=== PATIENT | male | born 1965 | race Caucasian/White ===

== ENCOUNTER 2016-09-28 08:35 | Day surgery (SDC) | payer OTHER ==
[2016-09-28] MEDS ORDERED: LACTATED RINGERS 1,000 ML IV ONE (08:55)
[2016-09-28] MEDS ORDERED: fentaNYL 100 MCG/2 ML VIAL IVP ONE (09:30)
[2016-09-28] MEDS ORDERED: MIDAZOLAM 2 MG/2 ML VIAL IVP ONE (09:30)
[2016-09-28 10:46] VITALS: BP 114/70
--- NOTE | 2016-10-03 08:11 | PROCEDURE REPORT ---
DATE OF PROCEDURE: 09/28/2016 00:00:00 ENDOSCOPIST: Jonnathan Gonsales MD. PRIMARY CARE PROVIDER: Esthela Martini NP. INDICATION: Screening first colonoscopy. PREMEDICATIONS: Fentanyl 100 mcg, Versed 9 mg IV titration. TOTAL SEDATION TIME: 20 minutes. ENDOSCOPIST: Jonnathan Gonsales MD OPERATIVE PROCEDURE: After informed consent was obtained, the patient was placed in the left lateral decubitus position. The video colonoscope was placed in the rectum and slowly advanced to the cecum . On slow withdrawal, the mucosa was carefully examined. The scope was removed. The patient tolera angella the procedure well. BLOOD LOSS: None. COMPLICATIONS: None. FINDINGS 1. An 8 mm polyp in the mid right colon. Cold snare to remove completely. 2. Otherwise negative colonoscopy to cecum. We will be in touch with patient regarding his pathology, will need for followup colonoscopy in 5 yea rs. JOB #: [id number] EXT JOB #:[id number]
== END 2016-09-28 08:36 | disposition home or self-care (01) ==
LOC: SDS 08:35
PROVIDERS: ATTEND Internal Medicine Gastroenterology
PROC: 0DBF8ZX Excision of Right Large Intestine, Via Natural or Artificial Opening Endoscopic, Diagnostic (ICD-10-PCS; principal; 2016-09-28 09:30)
DX: Z12.11 Encounter for screening for malignant neoplasm of colon (principal); D12.2 Benign neoplasm of ascending colon
CPT/HCPCS: 45385; 88305; J7120

== ENCOUNTER 2019-12-21 08:12 | Outpatient (CLI) | payer OTHER ==
--- NOTE | 2019-12-23 16:18 | MRI Report ---
PROCEDURE: Knee RT W/O INDICATIONS: RT KNEE PAIN TECHNIQUE: Noncontrast sagittal PD fast spin echo and T2 fast spin echo with fat saturation, sagittal 3-D spoile d GE with fat saturation; coronal T1 spin echo and PD fast spin echo with fat saturation, and axial P D fast spin echo with fat saturation through the knee. COMPARISON: None. FINDINGS: Image quality: Excellent. Menisci: There is complex degenerative tearing of the posterior horn and body of the medial meniscus with a diminutive appearance of the posterior horn and mild extrusion of the meniscal body. Horizont al and vertical components of the tear are noted. There is degenerative tearing and maceration of the anterior horn lateral meniscus as well as a horizontal oblique tear involving the posterior horn ext ending to the inner third of the tibial articular surface. There is mild extrusion of the lateral men iscal body beyond the femorotibial joint line. Cruciate ligaments: There is moderate mucoid degeneration of the anterior cruciate ligament. Posteri or cruciate ligament is intact. Medial structures: The medial collateral ligament appears intact. The semimembranosus tendon insert ions appear intact. Visualized portions of the pes anserinus tendons appear normal. Lateral structures: The lateral collateral ligament, long and short heads of the biceps femoris tend on appear intact. The popliteus tendon appears intact. Iliotibial band appears normal. 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 The tibial tubercle trochlear groove distance measures 2. 3 cm. No edema in the infrapatellar fat pad. Bones and cartilage: No bone marrow contusion or acute fracture. Full-thickness cartilage loss is s een throughout the weightbearing portion of the medial femorotibial compartment. Small marginal osteo phytes are present. There is also full-thickness cartilage loss in the weightbearing portion of the l ateral compartment with mild subchondral edema and marginal osteophyte formation. Full-thickness cart ilage loss is seen in the anterior compartment involving the lateral patellar facet and lateral femor al trochlea with subchondral cystic changes. Degenerative changes are also noted at the proximal tibi ofibular joint. Joint space and soft tissues: There is a small joint effusion. A 5 mm ossified loose body is seen in the suprapatellar recess. There is no medial popliteal cyst. Metallic artifact is seen at the skin surface in the prepatellar region. IMPRESSION: 1. Tricompartment degenerative osteoarthrosis with full-thickness cartilage loss in all 3 compartmen ts and areas of subchondral cystic changes and subchondral edema. Tricompartment marginal osteophytes are present. 2. Complex degenerative tearing of the posterior horn and body medial meniscus with horizontal and v ertical components and mild extrusion of the meniscal body. 3. Degenerative tearing of the anterior horn of the lateral meniscus and horizontal oblique tearing of the posterior horn lateral meniscus with mild extrusion of the lateral meniscal body. 4. Small joint effusion. Probable 5 mm ossified loose body in the suprapatellar recess. Reviewed by: Oliver Buckley MD on 12/23/2019 9:05 AM PDT Approved by: Oliver Buckley MD on 12/23/2019 9:05 AM PDT Station ID: [id number]
== END 2019-12-21 08:13 | disposition home or self-care (01) ==
LOC: DI 08:12
PROVIDERS: ATTEND Nurse Practitioner Family
DX: M17.11 Unilateral primary osteoarthritis, right knee (principal); M11.261 Other chondrocalcinosis, right knee; M25.761 Osteophyte, right knee; S83.231A Complex tear of medial meniscus, current injury, right knee, initial encounter; S83.281A Other tear of lateral meniscus, current injury, right knee, initial encounter; M25.461 Effusion, right knee

== ENCOUNTER 2022-02-24 14:13 | Outpatient (CLI) | payer OTHER ==
--- NOTE | 2022-02-24 12:02 | XRAY Report ---
PROCEDURE: Shoulder 3 View RT INDICATIONS: RIGHT SHOULDER PAIN TECHNIQUE: 4 views of the shoulder were acquired. COMPARISON: None. FINDINGS: Bones: No fractures or dislocations. There is moderate glenohumeral joint space loss and marginal sp urring in the humeral head. Slight inferior subluxation of humeral head may be in part due to positio arthur. No suspicious bony lesions. Visualized ribs appear intact. Soft tissues: No suspicious soft tissue calcifications. IMPRESSION: Moderate glenohumeral joint degenerative change. Reviewed by: Irasema Cotter MD on 02/24/2022 12:00 PM PST Approved by: Irasema Cotter MD on 02/24/2022 12:00 PM PST Station ID: [id number]
== END 2022-02-24 14:25 | disposition home or self-care (01) ==
LOC: DI.WOS 14:13
PROVIDERS: ATTEND Orthopaedic Surgery
DX: M19.011 Primary osteoarthritis, right shoulder (principal)

== ENCOUNTER 2022-03-03 08:54 | Outpatient (CLI) | payer OTHER ==
[2022-03-03] MEDS ORDERED: LIDOCAINE-MPF 1% 5 ML VIAL ONE (09:02)
[2022-03-03] MEDS ORDERED: iohexoL-240 10 ML VIAL IVP ONE ×2 (09:03→10:15)
[2022-03-03] MEDS ORDERED: TRIAMCINOLONE 40 MG/ML VIAL ONE (09:03)
[2022-03-03] MEDS ORDERED: BUPIVACAINE 0.5% PF 10 ML VIAL ONE (09:04)
[2022-03-03] MEDS ORDERED: BUPIVACAINE 0.5% PF 10 ML VIAL IM ONE (10:13)
[2022-03-03] MEDS ORDERED: LIDOCAINE-MPF 1% 5 ML VIAL TD ONE (10:16)
[2022-03-03] MEDS ORDERED: TRIAMCINOLONE 40 MG/ML VIAL IM ONE (10:18)
--- NOTE | 2022-03-03 10:29 | XRAY Report ---
PROCEDURE: Inj/Aspiration Major Joint INDICATIONS: SHOUDER OSTEOARTHRITIS CONTRAST: 2 mL FLUORO DOSAGE: 319.5 mcg meter squared FLUORO TIME: 0.6 TECHNIQUE: The indications, alternatives, benefits, risks, and complications of the procedure were explained to the patient. Written informed consent was obtained and placed in the chart. The patient was placed in an appropriate position on the fluoroscopy table, and a site was chosen for percutaneous access un moshe fluoroscopic guidance. Local anesthetic was administered using a 1% lidocaine solution. A hypod ermic or spinal needle was then used to access the symptomatic joint. Intra-articular location of th e needle tip was confirmed by injecting a small amount of contrast, followed by steroid administratio n. The needle was then withdrawn, and a bandage applied to the puncture site. FINDINGS: Joint injected: Right shoulder Medications injected: 10 mL of 40 mg/mL Kenalog and 0.5% Ropivacaine mixture. Complications: None. IMPRESSION: Successful fluoroscopically guided administration of steroid and anaesthetic solution into the right shoulder joint. Reviewed by: Bartolome Rosenberg on 03/03/2022 10:28 AM [facility] Approved by: Bartolome Rosenberg on 03/03/2022 10:28 AM PST Station ID: [id number]
== END 2022-03-03 08:55 | disposition home or self-care (01) ==
LOC: DI 08:54
PROVIDERS: ATTEND Orthopaedic Surgery
DX: M19.011 Primary osteoarthritis, right shoulder (principal)
CPT/HCPCS: 20610; 77002; Q9966

== ENCOUNTER 2022-07-04 15:55 | Outpatient (CLI) | payer OTHER ==
--- NOTE | 2022-07-04 10:44 | XRAY Report ---
PROCEDURE: Shoulder 3 View RT INDICATIONS: RIGHT SHOULDER PAIN TECHNIQUE: 4 views of the shoulder were acquired. COMPARISON: None. FINDINGS: Bones: No fractures or dislocations. No suspicious bony lesions. Visualized ribs appear intact. Glenohumeral and acromioclavicular joint space narrowing with associated osteophytosis. Soft tissues: No suspicious soft tissue calcifications. IMPRESSION: Moderate glenohumeral osteoarthritis. Reviewed by: Dajuan Diaz on 07/04/2022 10:42 AM PDT Approved by: Dajuan Diaz on 07/04/2022 10:42 AM PDT Station ID: [id number]
== END 2022-07-04 15:56 | disposition home or self-care (01) ==
LOC: DI.WOS 15:55
PROVIDERS: ATTEND Orthopaedic Surgery
DX: M19.011 Primary osteoarthritis, right shoulder (principal)

== ENCOUNTER 2022-07-12 07:58 | Outpatient (CLI) | payer OTHER ==
--- NOTE | 2022-07-13 10:10 | MRI Report ---
PROCEDURE: SHOULDER WO - RT INDICATIONS: SHOULDER OA TECHNIQUE: Noncontrast oblique coronal T2 fast spin echo with fat saturation, oblique sagittal T1 spin echo and T2 fast spin echo with fat saturation, axial T1 spin echo and T2 fast spin echo with fat saturation t hrough the shoulder. COMPARISON: X-ray right shoulder, 07/04/2022. FINDINGS: Image quality: Excellent. Rotator cuff: There is severe supraspinatus, infraspinatus and subscapularis tendinosis with high-gra de partial-thickness tear. No tendon rupture or rotator cuff muscle atrophy. Bones and bursae: No bone marrow contusions or fractures. There is moderate acromioclavicular and se gonzalez glenohumeral joint degeneration. There is denuded articular surface of glenoid with subchondral edema and cyst formation. The acromion demonstrates conventional anatomy, without an os acromiale. M oderate subcoracoid bursal fluid is present, consistent with bursitis. Small to moderate glenohumera l joint effusion. Capsule and soft tissues: Circumferential degenerative labral tear. In the absence of intra-articula r contrast, the glenohumeral ligaments appear intact. Mild tendinosis of the long head of the biceps tendon without full-thickness tendon tear. The rotator interval appears normal, without fibrosis. T he coracohumeral ligament is normal in thickness. IMPRESSION: 1. Severe supraspinous, infraspinatus and subscapularis tendinosis with high-grade partial-thickness tear. No tendon rupture or rotator cuff muscle atrophy. 2. Mild tendinosis of the long head of the biceps tendon. 3. Severe glenohumeral joint degeneration and moderate acromioclavicular joint degeneration. 4. Subcoracoid bursitis. 5. Circumferential degenerative labral tear. Reviewed by: Janessa Marshall MD on 07/13/2022 10:09 AM PDT Approved by: Janessa Marshall MD on 07/13/2022 10:09 AM PDT Station ID: [id number]
== END 2022-07-12 07:59 | disposition home or self-care (01) ==
LOC: DI 07:58
PROVIDERS: ATTEND Orthopaedic Surgery
DX: M19.011 Primary osteoarthritis, right shoulder (principal); M75.111 Incomplete rotator cuff tear or rupture of right shoulder, not specified as traumatic; M75.81 Other shoulder lesions, right shoulder; M75.51 Bursitis of right shoulder; S43.401A Unspecified sprain of right shoulder joint, initial encounter

== ENCOUNTER 2022-08-09 07:37 | Day surgery (SDC) | payer OTHER ==
[2022-08-09] MEDS ORDERED: LACTATED RINGERS 1,000 ML IV ONE ×2 (07:50→10:10)
--- NOTE | 2022-08-09 08:05 | ANESTHESIA ---
Pre-Anesthesia VS, & Labs - Diagnosis hx polyps - Procedure colonoscopy Vital Signs: Temp Pulse Resp BP Pulse Ox O2 Flow Rate 36 C L 67 11 L 145/101 H 96 0 08/09/22 07:51 08/09/22 07:51 08/09/22 07:51 08/09/22 07:51 08/09/22 07:51 08/09/22 07:51 Height: 6 ft Weight (kg): 125 kg Body Mass Index: 37.3 BMI Classification: Obese - NPO >8 hours Last Fluid Intake: am prep - Lab Results Lab results reviewed: Yes Home Medications and Allergies Home Medications: Ambulatory Orders Lisinopril [Zestril] 20 mg PO DAILY 08/05/22 Meloxicam 15 mg PO DAILY 08/05/22 Cholecalciferol (Vitamin D3) [Vitamin D] 4,000 unit PO DAILY 09/27/16 Multivitamin [Multiple Vitamins] 1 each PO DAILY 09/27/16 Lisinopril [Zestril] 20 mg PO DAILY 08/05/22 Meloxicam 15 mg PO DAILY 08/05/22 Allergies/Adverse Reactions: Allergies Allergy/AdvReac Type Severity Reaction Status Date / Time No Known Drug Allergies Allergy Verified 08/09/22 08:01 Anes History & Medical History - Anesthetic History Anesthesia Complications: reports: No previous complications Family history of Anesthesia Complications: Denies Family history of Malignant Hyperthermia: Denies - Medical History Cardiovascular: reports: Hypertension Pulmonary: reports: Sleep apnea, CPAP use Gastrointestinal: reports: None Urinary: reports: None Musculoskeletal: reports: Chronic back pain Endocrine/Autoimmune: reports: None Skin: reports: Eczema - Surgical History General: reports: Appendectomy, Colonoscopy Eyes Ears Nose Throat (EENT): reports: Tonsil/Adenoidectomy Exam General: Alert, Oriented x3, Cooperative Dental: WNL Mouth Openin Fingerbreadth Neck Mobility: Normal Mallampati classification: II Thyromental Distance: 4-6 cm Respiratory: Lungs clear, Normal breath sounds, No respiratory distress Cardiovascular: Regular rate Neurological: Normal speech Mental/Cognitive Status: Alert/Oriented X3, Normal for patient Cognitive Status: Within normal limits Plan Anesthesia Type: Total IV Consent for Procedure(s) Verified and Reviewed: Yes Code Status: Attempt Resuscitation ASA classification: 2-Mild systemic disease Is this case an emergency?: No
[2022-08-09] MEDS ORDERED: PROPOFOL 500 MG/50 ML 500 MG/50 ML VIAL ONE (08:50)
[2022-08-09] MEDS ORDERED: MIDAZOLAM 2 MG/2 ML VIAL ONE (08:53)
[2022-08-09 10:32] VITALS: BP 124/79
--- NOTE | 2022-08-09 11:28 | ANESTHESIA POST OP EVALUATION ---
Anesthesia Post Eval - Post Anesthesia Eval Vitals: Last Vital Signs Temp 36.2 C L 08/09/22 10:30 Pulse 65 08/09/22 10:30 Resp 16 08/09/22 10:30 BP 124/79 08/09/22 10:30 Pulse Ox 96 08/09/22 10:30 O2 Flow Rate 0 08/09/22 07:51 CV Function Including HR & BP: Stable Pain Control: Satisfactory Nausea & Vomiting: Negative Mental Status: Baseline Respiratory Status: Airway Patent Hydration Status: Satisfactory Anesthesia Complications: None
== END 2022-08-09 07:38 | disposition home or self-care (01) ==
LOC: SDS 07:37
PROVIDERS: ATTEND Surgery
DX: Z12.11 Encounter for screening for malignant neoplasm of colon (principal); E66.9 Obesity, unspecified; Z68.37 Body mass index [BMI] 37.0-37.9, adult; G47.30 Sleep apnea, unspecified; Z86.010 Personal history of colon polyps
CPT/HCPCS: 45378; J7120

== ENCOUNTER 2023-04-03 07:43 | Outpatient (CLI) | payer OTHER ==
--- NOTE | 2023-04-03 20:17 | MRI Report ---
PROCEDURE: LUMBAR SPINE WO INDICATIONS: LOW BACK PAIN TECHNIQUE: Noncontrast sagittal T1 spin echo and T2 fast echo, sagittal STIR, axial T1 and T2 fast spin echo thr ough the lumbar spine. In cases with scoliosis, additional coronal T2 fast spin echo may be performe d. COMPARISON: None. FINDINGS: Image quality: Excellent. Alignment and Curvature: There is normal bony alignment. Bone Marrow: Marrow is of normal overall signal. No acute vertebral body compression fractures. Spinal Cord: Conus medullaris terminates at the L1 level. Visualized cord demonstrates normal signa l and size. Paraspinous Soft Tissues: No paravertebral masses. T12-L1: Normal in appearance. L1-L2: The disc height is relatively well preserved. Mild disc bulge is seen. Mild to moderate bi lateral neuroforaminal narrowing can be seen. Minimal central canal narrowing is seen. L2-L3: The disc height is well-preserved. There is loss of disc signal seen. Moderate disc bulg e is seen, which is eccentric to the left. There is a left foraminal disc protrusion seen. Note is ma de of an annular fissure posteriorly. There is moderate left-sided and mild right-sided neuroforami nal narrowing. Mild central canal narrowing is seen. L3-L4: Mild loss of disc height and disc signal are seen. Moderate disc bulge is seen at this leve l. A superimposed central disc protrusion is seen. Mild to moderate facet hypertrophy is seen. Moder ate bilateral neural foraminal narrowing is seen. Moderate central canal narrowing is seen. L4-L5: The disc height is well-preserved. There is loss of disc signal seen. Mild disc bulge is se en. A superimposed central disc protrusion is seen. Moderate facet hypertrophy is seen. Moderate bi lateral neural foraminal narrowing is seen. Mild central canal narrowing is seen. L5-S1: The disc height is well-preserved. There is loss of disc signal seen. Mild disc bulge is se en. Note is made of an annular fissure posteriorly. Mild facet hypertrophy is seen. There is mild le ft-sided and no significant right-sided neuroforaminal narrowing. No significant central canal narrow ing is seen. IMPRESSION: Multiple levels of lumbar spine degenerative change can be seen, which are overall worst at L3-L4. Reviewed by: Terrell Franklin MD on 04/03/2023 7:16 PM [facility] Approved by: Terrell Franklin MD on 04/03/2023 7:16 PM [facility] Station ID: [id number]
== END 2023-04-03 07:44 | disposition home or self-care (01) ==
LOC: DI 07:43
PROVIDERS: ATTEND Physician Assistant
DX: M51.36 Other intervertebral disc degeneration, lumbar region (principal); M48.061 Spinal stenosis, lumbar region without neurogenic claudication; M47.816 Spondylosis without myelopathy or radiculopathy, lumbar region; M51.37 Other intervertebral disc degeneration, lumbosacral region; M48.07 Spinal stenosis, lumbosacral region; M47.817 Spondylosis without myelopathy or radiculopathy, lumbosacral region